=== PATIENT | male | born 1995 | race African-American/Black ===

== ENCOUNTER 2017-06-15 20:44 | Emergency (ER) | payer OTHER ==
[~2017-06-15] VITALS: Ht 165.1 cm; Wt 52.6 kg
[2017-06-15] MEDS ORDERED: SOD CHLORIDE 0.9% (21:03)
[2017-06-15] MEDS ORDERED: Q-VAR (21:04)
--- NOTE | 2017-06-15 21:14 | NUR ---
Pt biba from home due to bloody diarrhea per mother. Abd soft and non- tender, no complaints of pain. Pt resting in position of comfort for self. Resp even and unlabored. No obvious signs of distress. Parents at bedside, awaiting further eval
--- NOTE | 2017-06-15 21:25 | NUR ---
Dr. Gutiérrez at bedside for MSE
[2017-06-15] MEDS ORDERED: IV NORMAL SALINE 1000 ML BAG IV ONE (21:30)
--- NOTE | 2017-06-15 22:20 | NUR ---
Pt to CT via [facility]
[2017-06-15 22:29] LABS: BASOPHILS % (AUTO) 0.1 % (0.0-2.0); HEMATOCRIT 36.4 % (36.7-47.1); HEMOGLOBIN 12.3 g/dL (12.5-16.3); LYMPHOCYTES # (AUTO) 1.2 K/uL (20.0-40.0); LYMPHOCYTES % (AUTO) 9.2 % (20.5-51.5); MEAN CORPUSCULAR HEMOGLOBIN 30.7 uug (23.8-33.4); MEAN CORPUSCULAR HGB CONC 34 g/dL (32.5-36.3); MEAN CORPUSCULAR VOLUME 91.1 fL (73.0-96.2); MONOCYTES # (AUTO) 0.8 K/uL (2.0-10.0); MONOCYTES % (AUTO) 6.6 % (0.0-11.0); NEUTROPHILS # (AUTO) 10.6 K/uL (1.8-8.9); NEUTROPHILS % (AUTO) 84.1 % (38.5-71.5); PLATELET COUNT (AUTO) 214 K/uL (152-348); WHITE BLOOD COUNT (AUTO) 12.6 K/uL (3.6-10.2)
--- NOTE | 2017-06-15 22:32 | NUR ---
Pt returned from CT via [facility]
[2017-06-15 22:39] LABS: POTASSIUM 4.9 mmol/L (3.5-5.1)
[2017-06-15 22:45] LABS: BILIRUBIN,DIRECT 0.1 mg/dL (0.0-0.2); BILIRUBIN,TOTAL 0.2 mg/dL (0.2-1.0); TOTAL PROTEIN, SERUM 6.2 g/dL (6.4-8.2)
--- NOTE | 2017-06-15 23:11 | NUR ---
Pt stable for discharge per MD. IV dc'd, catheter intact, drsg applied. No problems noted to the site. Mother given ACI. Mother verbalized understanding of dc instructions. Pt ambulated out of ER with steady gait
[2017-06-15 23:13] VITALS: BP 129/76
== END 2017-06-15 23:13 | disposition home or self-care (01) ==
LOC: ER 20:45
DX: K92.1 Melena (principal); K44.9 Diaphragmatic hernia without obstruction or gangrene; Z93.0 Tracheostomy status
CPT/HCPCS: 36415; 70030-TC; 71045; 83690; 85025; 85730; 93005; A4663; J7030